=== PATIENT | male | born 2000 | race Caucasian/White ===

== ENCOUNTER → 2018-02-10 | Outpatient (CLI) | payer BC ==
[2018-02-10 12:15] LABS: BASO # 0.1 (0.0-0.2); BASO % 0.5 % (0.0-2.0); EOS # 0.2 (0.0-0.7); EOS % 1.5 % (0-4.0); GRAN # 7.5 (1.4-6.5); GRAN % 67.8 % (42.2-75.2); HEMATOCRIT 48.8 % (36.0-47.0); LYMPH # 2.7 (1.2-3.4); LYMPH % 24.3 % (20.0-51.0); MEAN CELL VOLUME 85 fl (80.0-95.0); MEAN CORPUSCULAR HEMOGLOBIN 30 pg (26.0-32.0); MEAN CORPUSCULAR HGB CONC 35 g/dl (33.0-37.0); MONO # 0.6 (0.1-0.6); MONO % 5.5 % (1.7-9.3); PLATELET COUNT 306 K/mm3 (130-400); RED BLOOD COUNT 5.77 M/mm3 (4.20-5.60); REDCELL DISTRIBUTION WIDTH-CV 12.6 % (11.5-14.5)
[2018-02-10 12:25] LABS: ANION GAP 12 mmol/L (7-16); BLOOD UREA NITROGEN 19 mg/dL (9-20); CALCIUM 9.8 mg/dL (8.4-10.2); CARBON DIOXIDE 28 mmol/L (22-30); CHLORIDE 100 mmol/L (98-107); CREATININE, serum 1.06 mg/dL (0.66-1.25); GLUCOSE 94 mg/dL (74-106); POTASSIUM 4.6 mmol/L (3.4-5.0); SODIUM 139 mmol/L (137-145)
[2018-02-10 12:27] LABS: C-REACTIVE PROTEIN < 0.5 mg/dL (0.0-0.9)
[2018-02-10 12:35] LABS: ERYTHROCYTE SEDIMENTATION RATE 1 mm/hr (0-15)
== END ==
LOC: COL.RAD 11:47
PROVIDERS: Pediatrics Pediatric Gastroenterology
DX: K50.90 Crohn's disease, unspecified, without complications (principal)